=== PATIENT | male | born 1965 | race Caucasian/White ===

== ENCOUNTER 2020-05-21 13:19 | Emergency (ER) | payer MEDICARE ==
[2020-05-21 14:31] VITALS: BP 120/79
--- NOTE | 2020-05-21 14:54 | Emergency Department Report ---
ED General Adult HPI - General Chief complaint: Earache Stated complaint: HEADACHE/WEAK Time Seen by Provider: 05/21/20 14:27 Source: patient Mode of arrival: Wheelchair Limitations: Language Barrier ED Review of Systems ROS: Stated complaint: HEADACHE/WEAK Other details as noted in HPI ED Past Medical Hx - Past Medical History Previous Medical History?: Yes Hx of Cancer: Yes (nasal) - Surgical History Past Surgical History?: No - Social History Smoking Status: Unknown if ever smoked ED Physical Exam - General Limitations: Language Barrier ED Course Vital Signs 05/21/20 14:18 Temperature 100.1 F H Pulse Rate 87 Respiratory 20 Rate Blood Pressure 120/79 O2 Sat by Pulse 100 Oximetry Critical care attestation.: If time is entered above; I have spent that time in minutes in the direct care of this critically ill patient, excluding procedure time. ED Disposition Condition: Stable
--- NOTE | 2020-05-21 15:21 | Cat Scan Report ---
CT head without contrast INDICATION : MAIN. Acute frontal headache TECHNIQUE: Axial imaging performed from the skull apex through the skull base without the use of con trast. All CT scans at this location are performed using CT dose reduction for ALARA by means of aut omated exposure control. COMPARISON: None FINDINGS: Parenchyma: There is generalized edema in the left-sided temporal lobe in the midpole and anterior p ole. No acute hemorrhage identified. There is effacement of the left temporal horn but there is no mi dline shift. Ventricles: Remaining ventricles are normal in size and appear symmetric. Soft tissues: Soft tissues including the orbits appear normal. Bones: No acute osseous abnormality. Sinuses: There is fluid within several of the ethmoid air cells bilaterally. Remaining sinuses are c lear except for areas of mild mucosal thickening. IMPRESSION: 1. Abnormal exam with findings in the left temporal lobe as outlined above. Differential consideratio ns would include an underlying mass or infectious/inflammatory etiology, both of which would be favor ed over ischemic change. Recommend follow-up MRI of brain with the use of intravenous contrast for fu rther evaluation. No acute hemorrhage identified. 2. Mild bilateral mastoiditis. Signer Name: Khang Hilton MD Signed: 05/21/2020 3:17 PM Workstation Name: [id number]
--- NOTE | 2020-05-21 15:30 | XRay Report ---
CHEST 2 VIEWS INDICATION: fever ,generalized weakness. COMPARISON: None. FINDINGS: Support devices: Right subclavian chest port in satisfactory position. Heart: Within normal limits. Lungs/Pleura: No acute air space or interstitial disease. No significant pleural effusion. IMPRESSION: No acute findings. Signer Name: Kranthi Payne MD Signed: 05/21/2020 3:25 PM Workstation Name: [id number]
--- NOTE | 2020-05-21 15:43 | Event Note ---
ED Screening Note Date of service: 05/21/20 Time: 15:42 ED Screening Note: 55-year-old male with a known history of nasopharyngeal cancer, previous "brain infection" presents to the ER with chief complaint of generalized weakness, frontal head pain and drainage out of his left ear. Cancer has been treated at [facility]. This initial assessment/diagnostic orders/clinical plan/treatment(s) is/are subject to change based on patients health status, clinical progression and re- assessment by fellow clinical providers in the ED. Further treatment and workup at subsequent clinical providers discretion. Patient/guardian urged not to elope from the ED as their condition may be serious if not clinically assessed and managed. Initial orders include: CT head, chest x-ray Head imaging returned abnormal, discussed with attending physician who will manage patient.
--- NOTE | 2020-05-21 17:41 | Emergency Department Report ---
Blank Doc - Documentation Documentation: I did not evaluate patient. Patient left AGAINST MEDICAL ADVICE prior to my evaluation. Registered nurse spoke to daughter who is clinical decision maker. Daughter is taking patient to outside hospital. Patient normally gets care at [facility] for nasopharyngeal cancer. Patient's daughter does have decision-making capacity. Patient's daughter is a clinical decision maker. Patient will be transferred directly to [facility] according to daughter and nurse report. I did review CT head report. Unknown if malignancy or infectious process is acute or chronic.
== END 2020-05-21 17:36 | disposition left against medical advice (07) ==
LOC: ED 13:19
DX: R53.1 Weakness (principal); R51.9 Headache, unspecified; Z53.21 Procedure and treatment not carried out due to patient leaving prior to being seen by health care provider
CPT/HCPCS: 70450; 71046